=== PATIENT | male | born 1985 ===

== ENCOUNTER 2025-08-13 06:24 | Day surgery (SDC) | payer OTHER, SELFPAY | END 2025-08-13 16:26 | disposition home or self-care (01) | LOC: GI 06:24 | PROVIDERS: ATTENDING PHYSICIAN Student in an Organized Health Care Education/Training Program | DX: Z12.11 Encounter for screening for malignant neoplasm of colon (principal); Z86.0101 Personal history of adenomatous and serrated colon polyps; K63.89 Other specified diseases of intestine; D12.5 Benign neoplasm of sigmoid colon; K63.5 Polyp of colon; K62.1 Rectal polyp | CPT/HCPCS: 45385; 45380; 88305 ==